=== PATIENT | male | born 1980 | race Hispanic/Latino ===

== ENCOUNTER 2017-10-24 13:02 | Emergency (ER) | payer SELFPAY ==
[~2017-10-24] VITALS: Ht 165.1 cm; Wt 59.0 kg
[2017-10-24] MEDS ORDERED: ASPIRIN 81 MG CHEW TAB PO ONE (13:30)
[2017-10-24 14:10] LABS: BASOPHILS % 0.4 % (0.0-1.0); EOSINOPHILS # (AUTO) 0.2 (0.0-0.4); EOSINOPHILS % 1.7 % (0.0-6.0); HEMATOCRIT 47.2 % (38.2-49.6); HEMOGLOBIN 16.3 g/dL (14.0-18.0); LYMPHOCYTES # (AUTO) 1.8 (1.0-3.2); MEAN CORPUSCULAR HEMOGLOBIN 31.7 pg (28-32); MEAN CORPUSCULAR HGB CONC 34.5 g/dL (31-35); MEAN CORPUSCULAR VOLUME 91.7 fL (81-99); MONOCYTES # (AUTO) 1.1 (0.2-0.8); MONOCYTES % 10.8 % (4.4-11.3); NEUTROPHILS # (AUTO) 6.6 (2.1-6.9); NEUTROPHILS % 67.8 % (38.7-80.0); PLATELET COUNT 242 x10e3/uL (140-360); RED BLOOD COUNT 5.15 x10e6/uL (4.3-5.7); RED CELL DISTRIBUTION WIDTH 14.3 % (11.7-14.4)
[2017-10-24 14:25] LABS: INR 1.06
[2017-10-24 14:26] LABS: PARTIAL THROMBOPLASTIN TIME 30.8 seconds (23.8-35.5)
[2017-10-24 14:38] LABS: ALANINE AMINOTRANSFERASE 9 IU/L (0-55); ALBUMIN/GLOBULIN RATIO 1.2 (0.8-2.0); ALKALINE PHOSPHATASE 72 IU/L (40-150); AMYLASE 79 U/L (25-125); ANION GAP 13.9 mmol/L (8-16); BLOOD UREA NITROGEN 13 mg/dL (7-26); BUN/CREATININE RATIO 11 (6-25); CALCIUM 9.7 mg/dL (8.4-10.2); CARBON DIOXIDE 28 mmol/L (22-29); CHLORIDE 102 mmol/L (98-107); CREATINE KINASE 199 IU/L (30-200); CREATININE, SERUM 1.23 mg/dL (0.72-1.25); EST GLOMERULAR FILTRATION RATE > 60 ML/MIN (60-); GLUCOSE 95 mg/dL (74-118); LIPASE 24 U/L (8-78); POTASSIUM 3.9 mmol/L (3.5-5.1); SODIUM 140 mmol/L (136-145)
[2017-10-24 15:35] LABS: BILIRUBIN,URINE NEGATIVE (NEGATIVE); KETONES,URINE NEGATIVE (NEGATIVE); LEUKOCYTE ESTERASE ,URINE NEGATIVE (NEGATIVE); NITRITE,URINE NEGATIVE (NEGATIVE); PROTEIN,URINE DIPSTICK NEGATIVE (NEGATIVE); URINE UROBILINOGEN 1 mg/dL (0.2 - 1)
[2017-10-24 15:36] LABS: CLARITY,URINE CLEAR (CLEAR); COLOR,URINE STRAW (YELLOW)
[2017-10-24 15:41] LABS: AMPHETAMINES SCREEN,URINE NEGATIVE (NEGATIVE); BENZODIAZEPINES SCREEN,URINE NEGATIVE (NEGATIVE); PHENCYCLIDINE SCREEN,URINE NEGATIVE (NEGATIVE)
[2017-10-24 16:02] LABS: BACTERIA,URINE FEW /HPF
--- NOTE | 2017-10-24 16:13 | Diagnostic Imaging Report ---
PROCEDURE: A single AP view of the chest. COMPARISON: None. INDICATIONS: CHEST PAIN, SOB FINDINGS: Lines/tubes: None. Lungs: The lungs are well inflated and clear. There is no evidence of pneumonia or pulmonary edema. Pleura: There is no pleural effusion or pneumothorax. Heart and mediastinum: The heart and the mediastinum are unremarkable. Bones: No acute bony abnormality. IMPRESSION: 1. No acute cardiopulmonary abnormalities. Willie Navarro M.D. Dictated by: Willie Navarro M.D. on 10/24/2017 at 16:13 Electronically approved by: Willie Navarro M.D. on 10/24/2017 at 16:13
--- NOTE | 2017-10-24 16:47 | Diagnostic Imaging Report ---
EXAM: CTA OF THE THORACIC AORTA INDICATION: \S\chest pain r/o dissection \[id number] \S\[id number] COMPARISON: None. TECHNIQUE: Multi-detector CT technology was employed. CTA Gated axial imaging of the chest was performed after the administration of IV contrast. IV CONTRAST: 100 mL of Isovue-370 ORAL CONTRAST: None COMPLICATIONS: None RADIATION DOSE: Total DLP: 625.3 mGy*cm Estimated effective dose: (DLP x 0.015 x size factor) mSv CTDIvol has been reviewed. It is below the limits set by the Radiation Protocol Committee (RPC). For optimization of anatomic evaluation, multiplanar reconstruction, maximum intensity projections, and advanced 3-D off-line postprocessing were performed on a dedicated stand-alone workstation under the direct supervision of the interpreting physician. FINDINGS: Potential study limitations: None. LINES/ TUBES: None. VASCULAR WITH ADVANCED 3-D OFF-LINE POSTPROCESSING: Aortic valve morphology is trileaflet and contains no calcifications. The thoracic aorta is normal in course, caliber, and contour. There is no acute aortic pathology, such as dissection, intramural hematoma, or contained rupture. Aortic plaques: None. The arch vessel branching pattern is conventional. All of the arch branch vessels appear widely patent in their proximal portions. Marketing Engineer dimensions of the thoracic aorta are as follows: 2.1 cm at the aortic annulus 2.8 cm at the sinuses of Valsalva (the sinotubular junction is preserved) 3.0 cm at the mid ascending aorta 2.2 cm at the distal ascending aorta 1.9 cm at the mid transverse arch 2.1 cm at the proximal descending thoracic aorta 2.1 cm at the diaphragmatic hiatus. LUNGS AND AIRWAYS: Lungs are clear. Bilateral hilar peribronchial wall thickening. Airways are patent. PLEURA: The pleural spaces are clear. HEART AND MEDIASTINUM: The thyroid gland is normal. No mediastinal, hilar or axillary lymphadenopathy. The main pulmonary artery is normal in size. No large filling defects in the main pulmonary arteries. The cardiac chambers demonstrate normal atrioventricular and ventriculoarterial concordance, and systemic and pulmonary venous return. The cardiac chambers are normal in size. The coronary arteries have normal origins and courses. There are no distinct coronary calcifications identified, though this study was not optimized for coronary artery evaluation. There is no pericardial effusion. LIMITED ABDOMEN: The limited images of the upper abdomen reveal no abnormalities of the visualized organs. BONES: Unremarkable. IMPRESSION: 1. Normal thoracic aorta. There is no acute aortic pathology. 2. Bilateral hilar peribronchial wall thickening may relate to reactive airway disease or viral infection. 3. No filling defects in main pulmonary arteries. Signed by: Dr. Madhavi Covarrubias M.D. on 10/24/2017 4:44 PM
[2017-10-24] MEDS ORDERED: IBUPROFEN 600 MG TAB PO STA (18:09)
[2017-10-24] MEDS ORDERED: HYDROCODONE/APAP 10MG-325MG TAB PO ONE (18:15)
[2017-10-24] MEDS ORDERED: CYCLOBENZAPRINE HCL 10 MG TAB PO ONE (18:15)
[2017-10-24 18:38] VITALS: BP 142/99
[2017-10-24] MEDS ORDERED: IOPAMIDOL 370 MG/ML 200 ML INFUS..BTL INJ ONE (20:09)
[2017-10-24] MEDS ORDERED: SODIUM CHLORIDE 0.9% 50ML 100 ML ONE (20:09)
== END 2017-10-24 18:54 | disposition home or self-care (01) ==
LOC: ER 13:02
DX: R05 Cough (principal); R07.89 Other chest pain; F14.10 Cocaine abuse, uncomplicated; F11.10 Opioid abuse, uncomplicated; F19.10 Other psychoactive substance abuse, uncomplicated; F17.210 Nicotine dependence, cigarettes, uncomplicated
CPT/HCPCS: 36415; 71045; 71275; 80053; 80307; 81001; 82150; 82550; 82553; 83690; 83880; 84484; 85025; 85379; 85610; 85730; 93005; 99284; Q9967